=== PATIENT | male | born 2000 | race African-American/Black ===

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

== ENCOUNTER 2024-07-14 07:57 | Emergency (ER) | payer BC, SELFPAY ==
[2024-07-14] MEDS ORDERED: Lidocaine 1% PF 5 ML VIAL ONE (08:47)
[2024-07-14] MEDS ORDERED: cefTRIAXone (ROCEPHIN) 500 MG VIAL ONE (08:47)
[2024-07-14 10:54] LABS: Bacteria/HPF None Seen HPF (None Seen); Bilirubin Negative (Negative); Blood, Urine Negative (Negative); CAUTI Indications for Culture Dysuria,urgency,freq; Clarity Clear (Clear); Glucose, Urine (Dipstick) Normal (Negative); Ketone, Urine Negative (Negative); Leukocyte Negative Leu/uL (Negative); Nitrite Negative (Negative); Protein, Urine (Dipstick) 30 mg/dL (Neg-Trace); RBC/HPF 0-3 HPF (0-3); Specific Gravity, Urine 1.031 (1.002-1.036); Squamous Epithelial None Seen HPF (0-3); WBC/HPF 0-3 HPF (0-3); pH, Urine 7.5 (5.0-9.0)
[2024-07-14 10:55] LABS: Urine Culture Reflex No No
[2024-07-14 14:16] LABS: Chlam.trachomatis by PCR,Urine Not Detected (NotDetected); GC N.gonorrhoeae PCR,UrineVOID Not Detected (NotDetected)
== END 2024-07-14 09:19 | disposition home or self-care (01) ==
LOC: ERS 07:57
DX: Z20.2 Contact with and (suspected) exposure to infections with a predominantly sexual mode of transmission (principal); F17.290 Nicotine dependence, other tobacco product, uncomplicated
CPT/HCPCS: 81001; 87491; 87591; 96372; 99283; J0696